=== PATIENT | male | born 1980 | race Caucasian/White ===

== ENCOUNTER 2017-12-05 13:10 | Emergency (ER) | payer BC ==
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
== END 2017-12-05 13:45 | disposition home or self-care (01) ==
LOC: FB.ED 13:10
DX: S23.8XXA Sprain of other specified parts of thorax, initial encounter (principal); R51 Headache; Z79.899 Other long term (current) drug therapy; V87.8XXA Person injured in other specified noncollision transport accidents involving motor vehicle (traffic), initial encounter
CPT/HCPCS: 99283